=== PATIENT | female | born 1990 | race Caucasian/White ===

== ENCOUNTER 2018-01-26 06:00 | Inpatient (IN) ==
[2018-01-26] MEDS ORDERED: Metoclopramide 10 MG/2 ML VIAL IVP PRN (06:12)
[2018-01-26] MEDS ORDERED: Famotidine 20 MG/2 ML VIAL IVP PRN (06:12)
[2018-01-26] MEDS ORDERED: Naloxone 0.4 MG/ML INJ IVP PRN (06:12)
[2018-01-26] MEDS ORDERED: *HR* Nalbuphine 10 MG/ML AMPUL IVP PRN (06:12)
[2018-01-26] MEDS ORDERED: Ondansetron 4 MG/2 ML VIAL IVP PRN (06:12)
[2018-01-26] MEDS ORDERED: Oxytocin 20 units/ LR 1000 mL 20 UNIT/1,000 ML BAG IVC SCH ×2 (06:15→21:57)
[2018-01-26] MEDS ORDERED: Penicillin G Potassium 5,000,000 UNIT in 0.9 % Sodium Chloride Mini Bag 100 ML IVPB ONE (06:15)
[2018-01-26 06:58] LABS: Basophils % 0.1 %; Eosinophils % 0.4 %; Hematocrit 38.5 % (35.3-44.9); Immature Granulocytes % 0.2 % (0-4); Lymphocytes # 1.7 K/mcL (0.6-4.6); Lymphocytes % 21.6 %; Mean Corpuscular HGB Conc 33.8 g/dL (31.6-35.5); Mean Corpuscular Hemoglobin 31.9 pg (28.0-33.3); Mean Corpuscular Volume 94.6 fL (83.0-100.0); Mean Platelet Volume 11.6 fL (9.4-12.4); Monocytes # 0.7 K/mcL (0.0-1.3); Monocytes % 8.1 %; Neutrophils # 5.6 K/mcL (1.6-8.9); Platelet Count 150 K/mcL (140-400); Red Blood Count 4.07 M/mcL (3.82-4.97); Segmented Neutrophils % 69.6 %
[2018-01-26] MEDS: Ringers Solution, Lactated 1,000 ML IVC SCH ×2 (07:03→15:49)
--- NOTE | 2018-01-26 07:10 | OB/GYN History & Physical ---
Date of Encounter: 01/26/18 Time of Encounter: 07:05 Assessment and Plan (1) 39 weeks gestation of Current visit: Yes Status: Acute (2) Encounter for induction of labor Current visit: Yes Status: Acute Admit to labor and delivery Pitocin per policy Nubain and epidural as desires PCN for GBS Anticipate (3) Gestational diabetes Current visit: Yes Status: Acute Qualifiers: Gestational diabetes mellitus control: diet-controlled Trimester: third trimester Qualified Code(s): O24.410 - Gestational diabetes mellitus in , diet controlled (4) GBS (group B Streptococcus carrier), +RV culture, currently Current visit: Yes Status: Chronic Treat with PCN History of Present Illness Chief complaint: Induction of labor HPI: Ms. Doyle is a 27 year old female 39+0 weeks presents for IOL. care with Dr. Chapa. course complicated by gestational diabetes (diet controlled). Reports good movement, denies contractions, leaking of fluid or vaginal bleeding. Labs: O+, Rubella and Varicella immune, GBS+, all other serologies negative Past Med Surg Social Fam HX - Past Medical History Medical history: no medical history, kidney stones Additional medical history: kidney stones, herpes type 1 taking valtres at a precution no lesions Psychiatric history: no psych history - Past Surgical History Surgical History: other Additional surgical history: kidney stones - Social History Smoking Status: Never smoker Smokeless Tobacco Status: No Alcohol use: none Drug use: none - Family History Mother Adopted: No Family Member Ethnicity: Non- Living Status: Still Living Hx Family Cardiac Disorders: No Hx Family Respiratory Disorders: No Hx Family Cancer: No Hx Family GI Disorders: No Hx Family Endocrine Disorder: No Hx Family Neuromuscular Disorders: No Hx Family Neurologic Disorders: No Hx Family HEENT Disorders: No Hx Family Autoimmune Disorders: No Obstetrical History - Pregnancies : 4 Para: 1 Term: 1 : 0 Ab's: 2 Livin Medications and Allergies No Known Home Drugs 01/26/18 [History] 3 Allergy/AdvReac Type Severity Reaction Status Date / Time No Known Allergies Allergy Verified 07/13/15 12:45 Exam - Constitutional Constitutional: well developed, well nourished, no acute distress, average body habitus - Neck Neck exam: full ROM - Lungs Respiratory exam: CTAB - Cardiovascular Cardiovascular exam: RRR - Abdomen Abdomen: Present: gravid, non tender - Extremities Extremities exam: normal capillary refill, normal inspection - Vulva Vulva: bilateral: normal - Vagina Vagina: Present: normal moisture - Cervix Dilation: 3 Effacement: 80 Station: -2 Results Result Diagrams: 01/26/18 06:14 All other labs normal. - VTE Reasons for not Prescribing Prophylaxis: Treatment not Indicated - Low risk for VTE
[2018-01-26 07:18] LABS: Amphetamine Screen,Urine Negative ng/mL (Cutoff=1000); Barbiturate Screen,Urine Negative ng/mL (Cutoff=200); Benzodiazepines Screen,Urine Negative ng/mL (Cutoff=200); Cannabinoid Screen,Urine Negative ng/mL (Cutoff = 50); Cocaine Screen,Urine Negative ng/mL (Cutoff= 300); Opiate Screen,Urine Negative ng/mL (Cutoff=300); Phencyclidine Screen,Urine Negative ng/mL (Cutoff=25)
--- NOTE | 2018-01-26 09:37 | OB Labor Progress Note ---
Date of Encounter: 01/26/18 Time of Encounter: 09:34 Labor Progress Note - Subjective Subjective: Patient resting in bed comfortably. States she is feeling some contractions, but they are not painful. Her is present at the bedside. - Vital Signs Vital Signs: VSS - Cervix Cervix: 3-4/50/-1 - Heart Tones Heart Tones: baseline 140 - [place]: Contractions every 3-4 minutes - Plan Plan: Continue routine labor precautions Patient may have nubain/epidural upon request GBS positive - PCN prophylaxis Consider AROM after second dose of PCN Pitocin per protocol; currently infusing Anticipate vaginal delivery POC per consult with Dr Michaels
[2018-01-26] MEDS: Penicillin G Potassium 2,500,000 UNIT in 0.9 % Sodium Chloride 100 ML IVPB SCH ×2 (11:14→15:48)
[2018-01-26] MEDS ORDERED: *HR* FentaNYL (PF) 100 MCG/2 ML VIAL EP ONE (11:39)
[2018-01-26] MEDS ORDERED: Bupivacaine-MPF 0.25% 10 ML VIAL EP ONE (11:39)
[2018-01-26] MEDS ORDERED: Bupivacaine-MPF 0.25% 10 ML VIAL ONE (11:40)
[2018-01-26] MEDS ORDERED: Lidocaine -MPF 1% 5 ML AMPUL ONE (11:40)
[2018-01-26] MEDS ORDERED: *HR* FentaNYL (PF) 100 MCG/2 ML VIAL ONE (11:41)
[2018-01-26] MEDS ORDERED: Epidural Premix (fent/bupiv) 110 ML EP SCH (11:45)
--- NOTE | 2018-01-26 12:31 | Anesthesia Evaluation PreOp ---
Date of Encounter: 01/26/18 Time of Encounter: 11:52 - Past History Planned Operation: CANDELARIO Cardiac History: Denies any Significant Hx Pulmonary History: Denies Any Significant HX SHAREPOINT ARCHITECT History: Denies Any Significant HX Other Medical History: Denies Any Significant HX Anesthesia History: No Prior Anesthetic Complications (denies personal h/o GA or NA complications; denies family h/o GA complications) : Yes Test: Positive Alcohol Use: none Drug use: none Medications and Allergies Vit/Iron Fumarate/FA [ Tablet] 1 each PO DAILY 01/26/18 [ History] 3 Allergy/AdvReac Type Severity Reaction Status Date / Time No Known Allergies Allergy Verified 07/13/15 12:45 - Meds/Allergy Pre-op Review Medications Reviewed: Yes Allergies Reviewed: Yes Beta Blockers on Current Med List: No Anesthesia Results - Labs 01/26/18 06:14 Anesthesia Exam 136/85, HR86, RR 15 O2 Sat Height 1.7 m Weight 83.552 kg NPO (# of Hours): solids > 8hrs Pain Scale: 3 Pain Scale Used: Numeric (1 - 10) - HEENT Pupil (Motor): Pupils equal Mallampati: II Teeth: Normal Oral Opening: Greater than 3 - SHAREPOINT ARCHITECT LOC: Oriented SHAREPOINT ARCHITECT Motor: Normal RUE, Normal LUE, Normal RLE, Normal LLE, Normal Face SHAREPOINT ARCHITECT Sensory: Normal: RUE, LUE, RLE, LLE, Face - Cardiac Rhythm: Regular Murmur: None - Pulmonary Breath Sounds: bilateral Clear Respiratory Effort: Symmetrical Anesthesia Assess/Plan ASA Score: 2 Modified Alejandro Scale for Level of Consciousness: Cooperative, oriented, and tranquil Anesthetic Plan: Regional Autologous Blood: No Monitoring Plan: Standard Monitors Recovery Plan: Other
--- NOTE | 2018-01-26 12:34 | Anesthesia Procedures ---
Date of Encounter: 01/26/18 Time of Encounter: 12:31 Procedures: Anesthesia - Epidural/Spinal Patient ID/Chart reviewed: Yes Patient examined: Yes OB Eval: Gestational age: 39 weeks 0 days OB Eval: : 4 OB Eval: Hx Para: 1 OB Eval: Dilated at (cm): 4 OB Eval: Contractions: Non-stressed pattern Consent Obtained: Yes Supplemental Oxygen: None/Room Air Site Prep: Aseptic Technique, Sterile prep and drape, Povidone-Iodine 1% Patient position: upright Local Anesthetic: Lidocaine 1% Amount of Local Anesthetic used: 3 Touhy Needle Gauge: 18 Touhy Needle Depth (cm): 5 Catheter Depth at Skin (cm): 10 Test Dose (1.5% Lido + Epi): Volume given (mls): 5 Test Dose Result: Negative Loading Dose: 0.25% Marcaine (mls): 5 Loading Dose: Fentanyl (mcg): 100 Loading Dose Administered: Thru Catheter Infusion Med: 0.125% Bupivacaine w/ 2 mcg/ml Fentanyl Infusion Rate (mls/hr): [address]: Tegaderm, Tape Interspace Used: L4-L5 Loss of Resistance (MELVA): Yes Blood: No CSF: No Paresthesia: No Procedure: successful x 1 attempt; patient tolerated well; VSS Vitals + FHT's: please see Purvi MARMOLEJO's electronic records for VS
--- NOTE | 2018-01-26 15:46 | OB Labor Progress Note ---
Date of Encounter: 01/26/18 Time of Encounter: 15:41 Labor Progress Note - Subjective Subjective: Patient resting comfortably in bed. Epidural is working well - Vital Signs Vital Signs: VSS - Cervix Cervix: 4-5/70/0 - Heart Tones Heart Tones: 145 moderate variability category I - [place]: Contractions every 2-3 minutes - Interventions Interventions: AROM for copious amount of clear fluid; Patient and fetus tolerated well. Upon cervical exam after AROM, hand palpated over vertex. Reduced hand until unable to be palpated. Dr Michaels called to bedside to evaluate. - Plan Plan: Continue routine labor management GBS positive - PCN prophylaxis Continue pitocin Anticipate vaginal delivery POC per consult with Dr Michaels
--- NOTE | 2018-01-26 19:43 | OB/GYN Procedure Note ---
Delivery - Delivery Date: 01/26/18 Provider: Deric Michaels Intrapartum events: none Delivery induction: oxytocin Delivery augmentation: rupture of membranes Delivery monitor: external FHT, external uterine Anesthesia: epidural Quantitated Blood Loss: 150 - (s) Infant A Delivery Date: 01/26/18 Infant Delivery Time: 17:20 Presentation: vertex Position: OA Route of delivery: Gender: Male Viability: Viable Pounds: 8 Ounces: 6 at 1 minute: 8 at 5 mins: 9 Shoulder Dystocia: not encountered Specimens collected: cord blood Placenta: spontaneous - Repair Episiotomy: none Laceration Description: Perineal - 1st Degree - Complications Delivery complications: none - Disposition Mom disposition: stable in LDR disposition: stable in LDR - Comments Comments: Patient progressed to complete and on the perineum under epidural anesthesia. She delivered a live male weighing 8 lbs. 6 oz. right occiput anterior position was noted. Delivery time was 1919. Placenta delivered at 1926. She sustained a first-degree perineal laceration which was repaired with 3-0 Monocryl.
[2018-01-26] MEDS ORDERED: Sennosides 8.6 MG TABLET PO PRN (21:57)
[2018-01-26] MEDS ORDERED: Measles/Mumps/Rubella Vacc 0.5 ML VIAL SQ PRN (21:57)
[2018-01-27 04:45] LABS: Basophils % 0.1 %; Eosinophils % 0.1 %; Hematocrit 36.9 % (35.3-44.9); Hemoglobin 12.3 g/dL (11.5-15.4); Immature Granulocytes % 0.3 % (0-4); Lymphocytes # 1.5 K/mcL (0.6-4.6); Mean Corpuscular HGB Conc 33.3 g/dL (31.6-35.5); Mean Corpuscular Hemoglobin 31.6 pg (28.0-33.3); Mean Corpuscular Volume 94.9 fL (83.0-100.0); Mean Platelet Volume 11.7 fL (9.4-12.4); Monocytes # 0.9 K/mcL (0.0-1.3); Neutrophils # 12.4 K/mcL (1.6-8.9); Platelet Count 157 K/mcL (140-400); Red Blood Count 3.89 M/mcL (3.82-4.97); Segmented Neutrophils % 83.5 %
[2018-01-27] MEDS: Acetaminophen 325 MG TABLET PO PRN ×2 (08:47→18:32)
[2018-01-27] MEDS ORDERED: Prenatal Vit/FA 1 EACH TABLET PO SCH ×2 (09:00)
--- NOTE | 2018-01-27 09:26 | Discharge Summary ---
Date of Encounter: 01/27/18 Time of Encounter: 09:22 - Discharge Diagnosis (1) Breast feeding status of mother Priority: Secondary Status: Acute Comments: Community resources provided (2) Vaginal delivery Priority: Primary Status: Acute Comments: Pain well controlled with by mouth pain meds Vital signs stable Tolerating regular diet Voiding independently Passing flatus but has not had BM yet Lochia light Ambulating independently Discharge home today - Discharge Medications Prescriptions: Ibuprofen [Ibu] 600 mg PO Q6HR PRN #30 tablet PRN Reason: Moderate Pain Docusate [Colace] 100 mg PO BID #30 capsule Home Medications: Vit/Iron Fumarate/FA [ Tablet] 1 each PO DAILY 01/26/18 [ History] Acetaminophen [Tylenol] 650 mg PO Q6HR PRN tablet 01/27/18 [Rx] Docusate [Colace] 100 mg PO BID #30 capsule 01/27/18 [Rx] Ibuprofen [Ibu] 600 mg PO Q6HR PRN #30 tablet 01/27/18 [Rx] Allergies/Adverse Reactions: 3 Allergy/AdvReac Type Severity Reaction Status Date / Time No Known Allergies Allergy Verified 07/13/15 12:45 Data Procedures and tests throughout hospitalization: Laboratory Tests 01/26/18 01/26/18 01/27/18 06:12 06:14 04:17 WBC 8.1 14.9 H D RBC 4.07 3.89 Hgb 13.0 12.3 Hct 38.5 36.9 MCV 94.6 94.9 MCH 31.9 31.6 MCHC 33.8 33.3 RDW 14.0 14.0 Plt Count 150 157 MPV 11.6 11.7 Immature Gran % 0.2 0.3 Seg Neutrophils % 69.6 83.5 Lymphocytes % 21.6 10.0 Monocytes % 8.1 6.0 Eosinophils % 0.4 0.1 Basophils % 0.1 0.1 Neutrophils # 5.6 12.4 H Lymphocytes # 1.7 1.5 Monocytes # 0.7 0.9 Eosinophils # 0.0 0.0 Basophils # 0.0 0.0 Urine Opiates Screen Negative Ur Barbiturates Screen Negative Ur Phencyclidine Scrn Negative Ur Amphetamines Screen Negative U Benzodiazepines Scrn Negative Urine Cocaine Screen Negative U Marijuana (THC) Screen Negative Ur Drug Screen Interp See Below Labs on day of discharge: Labs from last 24 hours 01/27/18 04:17 WBC 14.9 H D RBC 3.89 Hgb 12.3 Hct 36.9 MCV 94.9 MCH 31.6 MCHC 33.3 RDW 14.0 Plt Count 157 MPV 11.7 Immature Gran % 0.3 Seg Neutrophils % 83.5 Lymphocytes % 10.0 Monocytes % 6.0 Eosinophils % 0.1 Basophils % 0.1 Neutrophils # 12.4 H Lymphocytes # 1.5 Monocytes # 0.9 Eosinophils # 0.0 Basophils # 0.0 Date of admission: 01/26/18 06:11 Primary care physician: PCP NONE Consults: 01/26/18 21:57 Consult to [facility] [CONS] Routine Comment: Vaginal delivery, consult needed Discharging clinician: Alma Briggs Anticipated date of discharge: 01/27/18 - Patient Status Disposition: Home, Self-Care Condition: Good Functional capacity at discharge: independent ambulation Overall status at discharge: patient is progressing back to baseline - Discharge Instructions Follow Up With: NONE,PCP [Primary Care Provider] - Veronica Chapa DO [Partnered Physician] - - Diet and Activity Activity: increase activity as tolerated Diet: regular diet Hospital Course Reason for admission: induction of labor, IUP at term Delivery: Episiotomy: none Laceration: none Other procedures: none complications: none Discharge diagnosis: IUP at term delivered [place] baby: male Time Attestation: Total time spent providing and/or coordinating discharge services: Time Spent: Less than 30 minutes Exam - Constitutional Vitals: Temp Pulse Resp BP Pulse Ox 98.2 F 87 16 116/77 97 01/27/18 07:30 01/27/18 07:30 01/27/18 07:30 01/27/18 07:30 01/27/18 03:25 General appearance IM: A&O X 3 - Respiratory Respiratory exam: Present: CTAB - Cardiovascular Cardiovascular exam IM: Present: RRR, +S1, +S2 - GI/Abdominal GI/Abdominal exam IM: normal bowel sounds, no peritoneal signs - Rectal Rectal exam: deferred - Uterine Tone: Firm Uterus Position: At Umbilicus, Midline - Extremities Exam Extremities exam IM: Present: normal capillary refill, normal inspection, pedal edema, radial pulses palpable and symmetrical - Neurological Exam Neurological exam: alert, CN II-XII intact, normal gait, oriented X3, reflexes normal, no focal deficits, strengths equal and symetr throughout - Psychiatric Additional comments: Patient denies history of anxiety and depression. Signs and symptoms of depression discussed with patient and she verbalizes understanding of when to seek help. - Other Additional findings: Breasts: Soft, nontender. Nipples intact without erythema.
[2018-01-27] MEDS ORDERED: Ibuprofen 600 MG TABLET PO PRN (10:23)
[2018-01-27 16:30] VITALS: BP 129/85
== END 2018-01-27 21:31 | disposition home or self-care (01) | DRG 560 ==
LOC: 1NENULAB 06:11 → 1NENUOBS 21:47
PROVIDERS: ADMIT Advanced Practice Midwife; ATTEND Advanced Practice Midwife